=== PATIENT | female | born 1945 | race Asian ===

== ENCOUNTER 2018-10-08 06:48 | Outpatient (CLI) | payer MEDICARE | END 2018-10-08 23:59 | disposition home or self-care (01) | LOC: CFH 06:48 | PROVIDERS: ATTEND Internal Medicine Gastroenterology | DX: K21.9 Gastro-esophageal reflux disease without esophagitis (principal); K30 Functional dyspepsia; N13.30 Unspecified hydronephrosis; N20.0 Calculus of kidney; R09.89 Other specified symptoms and signs involving the circulatory and respiratory systems; Z86.73 Personal history of transient ischemic attack (TIA), and cerebral infarction without residual deficits | CPT/HCPCS: 93975 ==

== ENCOUNTER 2018-11-09 12:59 | Outpatient (CLI) | payer MEDICARE | END 2018-11-09 23:59 | disposition home or self-care (01) | LOC: RAD 12:59 | PROVIDERS: ATTEND Urology | DX: N20.0 Calculus of kidney (principal) | CPT/HCPCS: 36415; 74178; 82565; Q9967 ==

== ENCOUNTER 2019-01-01 08:06 | Outpatient (CLI) | payer MEDICARE | END 2019-01-01 23:59 | disposition home or self-care (01) | LOC: CFH 08:06 | PROVIDERS: ATTEND Internal Medicine | DX: Z12.31 Encounter for screening mammogram for malignant neoplasm of breast (principal) | CPT/HCPCS: 77063; 77067 ==